=== PATIENT | female | born 1965 | race Two or more races ===

== ENCOUNTER 2018-05-29 11:23 | Emergency (ER) | payer MEDICAID ==
[~2018-05-29] VITALS: Ht 152.4 cm; Wt 76.2 kg
--- NOTE | 2018-05-29 11:33 | NUR ---
ED Nurse Note: Pt came into the ER w/ complaints of 10/10 left shoulder pain radiating to the left hand. Pt got into [facility] July of 2017 and ever since then, she has had this pain. A + O x4. Ambulatory. Skin warm to touch. Daughters at the bedside.
[2018-05-29 11:35] VITALS: BP 140/82
[2018-05-29] MEDS ORDERED: Methocarbamol 500mg tab ORAL ONE (12:15)
[2018-05-29] MEDS ORDERED: Acetaminophen 500mg (ES) tab ORAL ONE (12:15)
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
--- NOTE | 2018-05-29 12:25 | NUR ---
ED Nurse Note: Pt went down to radiology via wheelchair.
[2018-05-29] MEDS ORDERED: LIDOCAINE700 M1 TP (13:06)
[2018-05-29] MEDS ORDERED: ROBAXIN500 MG PO (13:06)
[2018-05-29] MEDS ORDERED: TYLENOL EXTRA500 MG ORAL (13:06)
[2018-05-29 13:15] VITALS: BP 120/75
--- NOTE | 2018-05-29 13:16 | NUR ---
ED Nurse Note: Discharge instructions given to pt. Answered all questions. Verbalized understanding. A + O x4. No acute distress noted. ID band removed. Left ER w/ steady gait and all belongings.
--- NOTE | 2018-05-29 14:13 | Diagnostic Imaging Report ---
Indication: Neck Pain Findings: 3 views of the cervical spine were obtained. Mild degenerative changes of the cervical spine are demonstrated. This is characterized by vertebral endplate osteophyte formation and narrowing of intervertebral discs. Bones are osteopenic. There is no acute fracture identified. Alignment is normal. The open-mouth odontoid view shows an intact dens and good alignment of the lateral masses with respect to the body of C2. There is no soft tissue swelling. Impression: Mild spondylosis
--- NOTE | 2018-05-29 14:14 | Diagnostic Imaging Report ---
Indication: left shoulder pain Findings: 3 views of the left shoulder were obtained. Alignment of the left shoulder is normal. No acute fracture is identified. Soft tissues are unremarkable. Impression: No acute injury
== END 2018-05-29 13:16 | disposition home or self-care (01) ==
LOC: EMR 12:10
DX: M75.42 Impingement syndrome of left shoulder (principal); M54.2 Cervicalgia; M47.812 Spondylosis without myelopathy or radiculopathy, cervical region
CPT/HCPCS: 72040; 99284